=== PATIENT | male | born 1970 | race Caucasian/White ===

== ENCOUNTER 2021-09-26 14:22 | Outpatient (CLI) | payer OTHER, SELFPAY ==
--- NOTE | 2021-09-26 | XR_ITS ---
WS: [id number] KNEE RIGHT TECHNIQUE: 3 views of the right knee CLINICAL INFORMATION: RIGHT KNEE PAIN COMPARISON: None. 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 Lateral joint compartme nt is better preserved. Slight hypertrophic spurring along the joint line. Small suprapatellar effusi on. Soft tissue edema. No acute fractures. XR/XR knee RT 3V* [id number] IMPRESSION: Mild tricompartmental arthritis with a small suprapatellar effusion. No acute f ractures. Kellgren-Darrion Classification:
== END 2021-09-26 14:23 | disposition home or self-care (01) ==
LOC: RADOUTREAD 09-27 14:33
PROVIDERS: Family Provider Nurse Practitioner Family; PCP Nurse Practitioner Family; Visit Provider Nurse Practitioner
DX: M25.561 Pain in right knee (principal); M17.11 Unilateral primary osteoarthritis, right knee
CPT/HCPCS: 73562

== ENCOUNTER → 2022-02-07 08:10 | Outpatient (BNVA) | payer OTHER, SELFPAY | PROVIDERS: Family Provider Nurse Practitioner Family; PCP Nurse Practitioner; Visit Provider Nurse Practitioner | DX: M10.9 Gout, unspecified (principal); M25.561 Pain in right knee; M25.461 Effusion, right knee | CPT/HCPCS: 80053; 80061; 84550; 85025; 85651; 86140; 86431 ==

== ENCOUNTER → 2022-05-17 08:56 | Outpatient (BNVA) | payer OTHER, SELFPAY | PROVIDERS: Family Provider Nurse Practitioner Family; PCP Nurse Practitioner; Visit Provider Nurse Practitioner | DX: R53.83 Other fatigue (principal); E79.0 Hyperuricemia without signs of inflammatory arthritis and tophaceous disease; Z12.5 Encounter for screening for malignant neoplasm of prostate; E55.9 Vitamin D deficiency, unspecified | CPT/HCPCS: 80053; 82306; 82607; 84550; 85651; 86140 ==

== ENCOUNTER → 2022-08-13 08:53 | Outpatient (BNVA) | payer OTHER, SELFPAY | PROVIDERS: Family Provider Nurse Practitioner Family; PCP Nurse Practitioner; Visit Provider Nurse Practitioner | DX: E79.0 Hyperuricemia without signs of inflammatory arthritis and tophaceous disease (principal); E78.2 Mixed hyperlipidemia; E66.01 Morbid (severe) obesity due to excess calories; N52.9 Male erectile dysfunction, unspecified; Z12.5 Encounter for screening for malignant neoplasm of prostate | CPT/HCPCS: 80053; 80061; G0103 ==

== ENCOUNTER → 2023-01-28 09:18 | Outpatient (BNVA) | payer OTHER, SELFPAY | PROVIDERS: Family Provider Nurse Practitioner Family; PCP Nurse Practitioner; Visit Provider Nurse Practitioner | DX: E55.9 Vitamin D deficiency, unspecified (principal); E78.2 Mixed hyperlipidemia; E79.0 Hyperuricemia without signs of inflammatory arthritis and tophaceous disease; M10.9 Gout, unspecified; E66.01 Morbid (severe) obesity due to excess calories; E66.9 Obesity, unspecified | CPT/HCPCS: 80053; 80061; 82306; 82607; 84550 ==

== ENCOUNTER 2023-02-14 14:43 | Outpatient (CLI) | payer OTHER, SELFPAY ==
--- NOTE | 2023-02-14 15:00 | USCV_ITS ---
Fabrizio Boss Age: 52 Gender: M : 1970 Exam Date: 02/14/2023 15:04 Ordering Phys: Rosalba Valencia Technologist: MICHAEL Exam Location: [facility] [place] Indication: LE Pain HISTORY: Lower extremity pain. PROCEDURES: Venous duplex imaging was performed in only the right lower extremity. The following venous structures were evaluated: common femoral vein, profunda vein, proximal portion of the greater saphenous vein, superficial femoral vein, and the popliteal vein. In addition, the posterior tibial and peroneal trunk were evaluated. Serial compression, augmentation maneuvers, and spectral Doppler flow evaluation were performed. FINDINGS: No evidence of DVT seen in any vessel visualized at this time. CONCLUSIONS No evidence of right lower extremity DVT. Sung Alvarez MD (Electronically Signed) Final Date: 14 February 2023 15:59 S
== END 2023-02-14 14:44 | disposition home or self-care (01) ==
LOC: RAD 14:47
PROVIDERS: PCP Nurse Practitioner; Visit Provider Nurse Practitioner
DX: I73.9 Peripheral vascular disease, unspecified (principal); M79.661 Pain in right lower leg
CPT/HCPCS: 93971

== ENCOUNTER → 2023-07-09 11:37 | Outpatient (BNVA) | payer OTHER, SELFPAY | PROVIDERS: PCP Nurse Practitioner; Visit Provider Nurse Practitioner | DX: E78.2 Mixed hyperlipidemia (principal); E55.9 Vitamin D deficiency, unspecified; E79.0 Hyperuricemia without signs of inflammatory arthritis and tophaceous disease; M10.9 Gout, unspecified | CPT/HCPCS: 80053; 80061; 82306; 84550; 85651; 86140 ==

== ENCOUNTER → 2023-12-18 11:14 | Outpatient (BNVA) | payer OTHER, SELFPAY | PROVIDERS: PCP Nurse Practitioner; Visit Provider Nurse Practitioner | DX: Z12.5 Encounter for screening for malignant neoplasm of prostate (principal); E55.9 Vitamin D deficiency, unspecified; E78.2 Mixed hyperlipidemia; E79.0 Hyperuricemia without signs of inflammatory arthritis and tophaceous disease | CPT/HCPCS: 80053; 82306; 84550; 85025; 85651; 86140; G0103 ==

== ENCOUNTER → 2024-09-23 08:41 | Outpatient (BNVA) | payer OTHER, SELFPAY | PROVIDERS: PCP Nurse Practitioner; Visit Provider Nurse Practitioner | DX: N18.2 Chronic kidney disease, stage 2 (mild) (principal) | CPT/HCPCS: 80053; 80061 ==

== ENCOUNTER → 2025-03-17 08:25 | Outpatient (BNVA) | payer OTHER, SELFPAY | PROVIDERS: PCP Nurse Practitioner; Visit Provider Nurse Practitioner | DX: Z12.5 Encounter for screening for malignant neoplasm of prostate (principal); E55.9 Vitamin D deficiency, unspecified; E78.2 Mixed hyperlipidemia; E79.0 Hyperuricemia without signs of inflammatory arthritis and tophaceous disease; N18.9 Chronic kidney disease, unspecified | CPT/HCPCS: 80053; 80061; 81003; 82306; 84550; 85025; G0103 ==